=== PATIENT | female | born 1975 | race Caucasian/White ===

== ENCOUNTER 2018-01-17 17:25 | Emergency (ER) | payer SELFPAY ==
[~2018-01-17] VITALS: Ht 160 cm; Wt 54.0 kg
[2018-01-17 18:55] VITALS: BP 130/88
== END 2018-01-17 18:57 | disposition home or self-care (01) ==
LOC: ER 17:54
DX: R53.1 Weakness (principal); R53.83 Other fatigue; F15.10 Other stimulant abuse, uncomplicated
CPT/HCPCS: 99283